=== PATIENT | male | born 1960 | race African-American/Black ===

== ENCOUNTER 2018-03-10 16:57 | Emergency (ER) | payer MEDICAID, OTHER ==
[~2018-03-10] VITALS: Ht 172.7 cm; Wt 81.6 kg
[~2018-03-10 16:57] MED LIST: ASPIRIN81 MG ORAL; ATENOLOL25 MG ORAL; LABETALOL HCL200 MG ORAL
--- NOTE | 2018-03-10 17:35 | Emergency Room Report ---
History of Present Illness General Chief Complaint: General Complaint Source: Patient, Medical Record Present Illness HPI 58-year-old male patient presents ER complaining of bumps on the right side of his abdomen for the past week. Patient reports he just began to notice nodules. Denies pain or tenderness. Denies history of injury to the area. denies fever, chest pain, shortness breath. Denies weight loss, other acute disease. Denies other acute symptoms at this time. Patient requesting biopsy to find "out what they are." Allergies: Coded Allergies: No Known Allergies (Verified Allergy, Unknown, 07/06/08) Patient History Past Medical History: see triage record Reviewed Nursing Documentation: PMH: Agreed; PSxH: Agreed Nursing Documentation-PMH Past Medical History: No History, Except For Hx Cardiac Problems: Yes Hx Hypertension: Yes Hx Cancer: No Hx Gastrointestinal Problems: No Hx Neurological Problems: No Review of Systems All Other Systems: negative except mentioned in HPI Physical Exam Vital Signs Date Time Temp Pulse Resp B/P (MAP) Pulse Ox O2 Delivery O2 Flow Rate FiO2 03/10/18 17:13 97.8 74 18 151/104 97 Room Air 97.9 Sp02 EP Interpretation: reviewed, normal General Appearance: well appearing, no apparent distress, alert, GCS 15, non- toxic Head: normocephalic, atraumatic Eyes: bilateral eye normal inspection, bilateral eye PERRL ENT: hearing grossly normal, normal pharynx, no angioedema, normal voice, uvula midline, moist mucus membranes Neck: full range of motion Respiratory: lungs clear, normal breath sounds, no rhonchi, no respiratory distress, no accessory muscle use, no wheezing, speaking full sentences Gastrointestinal: non tender, soft, no mass, non-distended, no guarding, no rebound Musculoskeletal: normal inspection Neurologic: alert, oriented x3, responsive, motor strength/tone normal, sensory intact Psychiatric: normal inspection Skin: other - right oblique: 3 skin colored 1cm nodules, mobile, no tenderness to palpation, no erythema, no drainage, no vesicles, no central clearing, no hair follicle, 3 nodules in vertical alignment Medical Decision Making PA Attestation Dr. Gomez is my supervising Physician whom patient management has been discussed with. Diagnostic Impression: Primary Impression: Lipoma ER Course Pt. presents to the ED c/o 3 bumps on abdomen. Ddx considered but are not limited to lipoma, sebaceous cyst, abscess, cellulitis. Vital signs: are WNL, pt. is afebrile Ordered medication. ER COURSE on physical exam, 3 subcutaneous nodules consistent with fatty tissue, likely lipoma. Provide patient with information on lipoma. follow up with PCP and request referral to dermatology. dermatology will perform excision and biopsy as needed. return to ER for new or worsening of symptoms including but not limited to erythema, edema, swelling, tenderness to palpation, drainage. Doesn't require medications at this time, patient denies pain, itching, burning. DISCHARGE: At this time pt. is stable for d/c to home. Patient resting comfortably, in no acute distress, nontoxic appearing, smiling and laughing and playing on his phone. Will provide printed patient care instructions, and any necessary prescriptions. Care plan and follow up instructions have been discussed with the patient prior to discharge. Patient provided with list of healthcare clinics to establish primary care physician. Patient instructed to follow-up with primary care provider in 3 - 5 days. Patient questions asked and answered. ER precautions given. Patient instructed to return to ER immediately for any new or worsening of symptoms including but not limited to increasing SOB, persistent fever. - Please note that this Emergency Department Report was dictated using [employer] designer technology software, occasionally this can lead to erroneous entry secondary to interpretation by the dictation equipment. Last Vital Signs Date Time Temp Pulse Resp B/P (MAP) Pulse Ox O2 Delivery O2 Flow Rate FiO2 03/10/18 17:13 97.8 74 18 151/104 97 Room Air 97.9 Disposition: HOME, SELF-CARE Condition: Stable Patient Instructions: Lipoma Additional Instructions: Followup with primary care provider and request referral to dermatology. May require surgery to have removed. Discuss need for biopsy with PCP and bank cashier, may require referral to surgery. Take medications as directed. Patient questions asked and answered. ER precautions given, patient instructed to return to ER immediately for any new or worsening of symptoms. Basil Tidwell March 10, 2018 17:35
[2018-03-10 17:51] VITALS: BP 151/104
[2018-03-10 17:52] VITALS: BP 151/104
== END 2018-03-10 17:52 | disposition home or self-care (01) ==
LOC: EMR 17:25
DX: D17.1 Benign lipomatous neoplasm of skin and subcutaneous tissue of trunk (principal); I10 Essential (primary) hypertension
CPT/HCPCS: 99282